=== PATIENT | female | born 1995 | race Caucasian/White ===

== ENCOUNTER 2019-12-13 01:27 | Inpatient (IN) | payer OTHER ==
[2019-12-13] MEDS ORDERED: SODIUM CHLORIDE 1,000 ML IV STA (02:21)
[2019-12-13] MEDS ORDERED: ACETAMINOPHEN 1000 MG/100 ML VIAL (NON FORMULARY) IVPB ONE ×2 (02:21→16:01)
--- NOTE | 2019-12-13 02:25 | PDOC ---
Attending Attestation - Resident Resident Name: Yuri Redmond - ED Attending Attestation I have performed the following: I have examined & evaluated the patient, The case was reviewed & discussed with the resident, I agree w/resident's findings & plan, Exceptions are as noted - HPI HPI: 12/13/19 07:17 See resident HPI - Physicial Exam PE: 12/13/19 07:17 Agree with documented exam - Medical Decision Making 12/13/19 07:17 24F with LLQ abdominal px a/w n/v, had similar episode in pst that she attributed to GERD consider colitis, AGE, nephrolithiasis, GERD, less likely torsion, eval for uti, pid f/u labs, ua symptomatic tx re-eval persistent px f/u ct ap Imaging shows proximal nephrolithiasis, hydro, stranding f/u ua admit
[2019-12-13] MEDS ORDERED: morphine CARPU-JECT 2 MG/1 ML DISP.SYRIN IVPUSH ONE (02:28)
--- NOTE | 2019-12-13 02:28 | PDOC ---
History of Present Illness - General Chief Complaint: Pain Stated Complaint: ABD PAIN Time Seen by Provider: 12/13/19 02:05 Past History - Past Medical History Allergies/Adverse Reactions: Allergies Allergy/AdvReac Type Severity Reaction Status Date / Time No Known Allergies Allergy Verified 12/13/19 01:33 Home Medications: Ambulatory Orders Ketorolac Tromethamine [Toradol] 10 mg PO Q6H PRN 3 Days #14 tablet 12/14/19 COPD: No - Psycho Social/Smoking Cessation Hx Smoking History: Never smoked *Physical Exam - Vital Signs Last Vital Signs Temp Pulse Resp BP Pulse Ox 97.9 F 76 18 124/60 99 12/13/19 01:30 12/13/19 01:30 12/13/19 01:30 12/13/19 01:30 12/13/19 01:30 12/13/19 02:22 24 y/o G1001 female PMH GERD c/o abdominal pain. This has happened before but usually epigastric and related to GERD. Pain is intense, causing her to writhe around, she is unable to sit down, located in [facility], started 14 hrs ago/at noon 12 Dec 2019, throbbing, non-radiating, and 10/10. She reports that she was eating ceviche, rice, and tostones with her family at home, which she made. No once else is experiencing these symptoms. She passed stool here in the ED and it was non-bloody and no mucus. She denies dysuria and hematuria. LMP was 2 years ago. She says that she used arm (?Nexplanon) implants in [facility]. She dc her implants a few months ago and has not had return of menses. Denies FNVD, chills, and constipation No new meds/herbs, drugs/supplements No recent illness, sick contacts She recent traveled to the [facility] from [facility] 4 months ago. Fam hx: Father DM Surgical hx: c/s (2009) Social hx: denies cigarette use, social etoh, denies drugs. No currently working. Lives in [facility]. Sexual hx: Currently sexually active with men only. No h/o STI. REVIEW OF SYSTEMS CONSTITUTIONAL: Absent: fever, chills, diaphoresis, generalized weakness, malaise, loss of appetite, weight change HEENT: Absent: rhinorrhea, nasal congestion, throat pain, throat swelling, difficulty swallowing, mouth swelling, ear pain, eye pain, visual changes CARDIOVASCULAR: Absent: chest pain, syncope, palpitations, irregular heart rate, lightheadedness, peripheral edema RESPIRATORY: Absent: cough, shortness of breath, dyspnea with exertion, orthopnea, wheezing, stridor, hemoptysis GASTROINTESTINAL: Absent: abdominal pain, abdominal distension, nausea, vomiting, diarrhea, con stipation, melena, hematochezia GENITOURINARY: Absent: dysuria, frequency, urgency, hesitancy, hematuria, flank pain, genital pain MUSCULOSKELETAL: Absent: myalgia, arthralgia, joint swelling, back pain, neck pain SKIN: Absent: rash, itching, pallor HEMATOLOGIC/IMMUNOLOGIC: Absent: easy bleeding, easy bruising, lymphadenopathy, frequent infections ENDOCRINE: Absent: unexplained weight gain, unexplained weight loss, heat intolerance, cold intolerance NEUROLOGIC: Absent: headache, focal weakness or paresthesias, dizziness, unsteady gait, seizure, mental status changes, bladder or bowel incontinence PSYCHIATRIC: Absent: anxiety, depression, suicidal or homicidal ideation, hallucinations. - GENERAL: AO x3 in acute distress HEAD: NCAT EYES: JOVANI, EOMI, sclera anicteric, conjunctiva clear. No ptosis. ENT: Ears normal, nares patent, oropharynx clear without exudates, moist mucous membranes. NECK: Trachea midline, full range of motion, supple. LUNGS: CTAB , no wheezes, no crackles, no accessory muscle use. HEART: RRR, S1, S2 without murmur, rub or gallop. - ABDOMEN: Soft, c/s scar, TTP LLQ, nondistended, normoactive bowel sounds, no guarding, no rebound, no hepatosplenomegaly, no masses. POS obturator sign. NEG King, Rovsing, Loren EXTREMITIES: 2+ pulses, warm, well-perfused, no edema. NEUROLOGICAL: Cranial nerves II through XII grossly intact. Strength 5/5 in UE and LE in both distal and proximal flexors. Brachial reflex 2+ BL. Patellar reflex 2+ BL. No dysdiadochokinesia. FTN NEG. Babinski NEG. Normal speech. Normal gait with appropriate strike phase, swing phase, and circumambulation KIN: Warm, dry, normal turgor, no rashes or lesions noted A/P # nephrolithiasis VS colitis VS diverticulitis VS ovarian torsion - CBC, CMP, UA, U cx, EKG - serum preg and if NEG CT a/p - NS 1 L - Ofirmev 1 g IVPB - Morphine 4 mg IVP 12/13/19 04:22 - serum preg neg - CT a/p with iv contrast ordered - Pain better controlled now - Pelvic exam: abdominal exam as above. Normal external morphology, shaved hair. No vaginal erythema or dc. No lesions. No CMT. 12/13/19 06:45 CT a/p POS for 3.2 mm x 7.4 mm obstructing proximal LEFT ureteral stone causing mild to moderate LEFT hydronephrosis/hydroureter, perinephric fluid stranding, and delayed excretion of contrast. Plan to admit Microblog sent ED Treatment Course - LABORATORY CBC & Chemistry Diagram: 12/14/19 13:05 12/14/19 05:50 Discharge - Discharge Information Problems reviewed: Yes Clinical Impression/Diagnosis: Nephrolithiasis Condition: Stable Disposition: HOME - Admission Yes - Follow up/Referral - Patient Discharge Instructions - Post Discharge Activity
[2019-12-13] MEDS ORDERED: morphine CARPU-JECT 4 MG/1 ML DISP.SYRIN IVPUSH ONE ×2 (02:32→05:13)
[2019-12-13] MEDS ORDERED: morphine SULFATE 4 MG/ML VIAL ONE ×2 (02:33→05:28)
[2019-12-13] MEDS ORDERED: ACETAMINOPHEN INJECTION 100 ML IVPB ONE (02:47)
[2019-12-13 03:08] LABS: BASO % 0.3 % (0-2.0); EOS % 0.5 % (0-4.5); HEMATOCRIT 39.9 % (32.4-45.2); HEMOGLOBIN 13.4 GM/dL (10.7-15.3); LYMPH % 16.6 % (8-40); MCH 31.3 pg (25.7-33.7); MCHC 33.6 g/dl (32.0-36.0); MEAN CELL VOLUME 93.2 fl (80-96); MEAN PLT VOLUME 8.4 fl (7.5-11.1); MONO % 6.9 % (3.8-10.2); NEUT % 75.7 % (42.8-82.8); PLATELET COUNT 308 K/MM3 (134-434); RBC 4.28 M/mm3 (3.60-5.2); RDW 12.9 % (11.6-15.6); WHITE BLOOD COUNT 14.8 K/mm3 (4.0-10.0)
--- NOTE | 2019-12-13 03:52 | PDOC ---
*Physical Exam - Vital Signs Last Vital Signs Temp Pulse Resp BP Pulse Ox 97.9 F 76 18 124/60 99 12/13/19 01:30 12/13/19 01:30 12/13/19 01:30 12/13/19 01:30 12/13/19 01:30 ED Treatment Course - LABORATORY CBC & Chemistry Diagram: 12/13/19 02:35 12/13/19 02:35 - ADDITIONAL ORDERS Additional order review: Laboratory Results 12/13/19 02:35 Serum , Qual Negative 12/13/19 02:35 RBC 4.28 MCV 93.2 MCHC 33.6 RDW 12.9 MPV 8.4 Neutrophils % 75.7 Lymphocytes % 16.6 Monocytes % 6.9 Eosinophils % 0.5 Basophils % 0.3 - Medications Given in the ED: ED Medications Discontinued Medications Generic Name Dose Route Start Last Admin Trade Name Freq PRN Reason Stop Dose Admin Acetaminophen 1,000 mg 12/13/19 02:21 12/13/19 03:00 Ofirmev Injection - IVPB 12/13/19 02:22 1,000 mg ONCE ONE Administration Sodium Chloride 1,000 mls @ 1,000 mls/hr 12/13/19 02:21 12/13/19 02:44 Normal Saline - IV 12/13/19 03:20 1,000 mls/hr ASDIR STA Administration Morphine Sulfate 2 mg 12/13/19 02:28 12/13/19 02:44 Morphine Injection - IVPUSH 12/13/19 02:29 Not Given ONCE ONE Morphine Sulfate 4 mg 12/13/19 02:32 12/13/19 02:44 Morphine Injection - IVPUSH 12/13/19 02:33 4 mg ONCE ONE Administration Medical Decision Making - Medical Decision Making 12/13/19 03:49 Patient seen as pre-attending with Dr. Redmond (PGY-1 IM [employer]) and Dr. Ledesma (Attending) 24 y/o female here with acute onset LLQ abdominal pain around 12 p.m. yesterday; h/o recent migration from [facility]. Recently removed Norplant implant w/o any return of her menstrual cycles. VS unremarkable Active NBNB emesis @ presentation; initial abdominal exam limited 2/2 to patient's pain S/p Morphine (4 mg) patient has LLQ TTP w/o peritoneal sign. No CVAT B/L Frontal Diagnosis: cystitis vs. pyelonephritis vs. nephrolithiasis vs. ovarian torsion vs. ectopic vs. hemmorhagic ovarian cyst vs. gastroenteritis. Less likely atypical appendicitis. 12/13/19 06:31 CTAP shows 3.2 x 7.4 obstructing L uteral stone w/L sided hydronephrosis, perinperhic fluid/stranding. Patient reassessed @ bedside, continues to c/o pain, will give Toradol. Amenable to admission. Hospitalist microblogged. Discharge - Discharge Information Problems reviewed: Yes Clinical Impression/Diagnosis: Nephrolithiasis Condition: Fair Disposition: HOME - Admission No - Follow up/Referral - Patient Discharge Instructions - Post Discharge Activity
[2019-12-13 03:54] LABS: ALBUMIN 3.8 g/dl (3.4-5.0); BILIRUBIN,TOTAL 0.4 mg/dL (0.2-1); BLOOD UREA NITROGEN 10.1 mg/dL (7-18); CALCIUM 8.7 mg/dL (8.5-10.1); CREATININE 0.7 mg/dL (0.55-1.3); POTASSIUM 4.5 mmol/L (3.5-5.1); TOT PROT 7.2 g/dl (6.4-8.2)
[2019-12-13] MEDS ORDERED: ONDANSETRON 4 MG/2 ML VIAL IVPUSH ONE (05:28)
[2019-12-13] MEDS ORDERED: ONDANSETRON 4 MG/2 ML VIAL ONE (05:29)
[2019-12-13] MEDS ORDERED: KETOROLAC TROMETHAMINE 30 MG/1 ML VIAL IVPUSH ONE (06:39)
[2019-12-13] MEDS ORDERED: KETOROLAC TROMETHAMINE 30 MG/1 ML VIAL ONE (06:44)
[2019-12-13] MEDS ORDERED: TAMSULOSIN HCL 0.4 MG CAP PO ONE (07:01)
[2019-12-13] MEDS ORDERED: KETOROLAC TROMETHAMINE 15 MG/ML VIAL IVPUSH PRN ×2 (07:39→16:23)
[2019-12-13] MEDS ORDERED: TAMSULOSIN HCL 0.4 MG CAP ONE (07:39)
[2019-12-13] MEDS ORDERED: ACETAMINOPHEN 1000 MG/100 ML VIAL (NON FORMULARY) IVPB PRN (07:42)
[2019-12-13] MEDS: LACTATED RINGERS SOLUTION 1,000 ML IV SCH ×2 (07:45→14:35)
--- NOTE | 2019-12-13 08:17 | HP ---
CHIEF COMPLAINT: LLQ/left flank pain PCP: HISTORY OF PRESENT ILLNESS: Patient is a 24 year old female with past medical history of GERD, presented to the ED due to constant severe 10/10 LLQ and left flank pain for 1 day. Patient reported pain started yesterday morning, occurred suddenly on the left flank are a radiating to the LLQ, severe 10/10, cramping with no aggravating or alleviating factors. This was accompanied by multiple episodes of NBNB vomiting. Because the pain was constant, patient came to the ED for further evaluation. Patient denies any fevers, chills, headache, dizziness, chest pain, SOB, diarrhea, hematuria or dysuria. ER course was notable for: (1)CTAP - 3.2mm x 7.4mm obstructing proximal left ureteral stone causing mild to moderate left hydronephrosis/hydroureter, perinephric fluid stranding, delayed excretion of contrast (2)WBC 14.8 (3) Recent Travel: denies PAST MEDICAL HISTORY: GERD PAST SURGICAL HISTORY: Social History: Smoking:denies Alcohol:denies Drugs: denies Family History: Sister - of T1DM Father - DM Allergies No Known Allergies Allergy (Verified 12/13/19 01:33) HOME MEDICATIONS: Home Medications Medication Instructions Recorded NK [No Known Home Medication] 12/13/19 REVIEW OF SYSTEMS CONSTITUTIONAL: Absent: fever, chills, diaphoresis, generalized weakness, malaise, loss of appetite, weight change HEENT: Absent: rhinorrhea, nasal congestion, throat pain, throat swelling, difficulty swallowing, mouth swelling, ear pain, eye pain, visual changes CARDIOVASCULAR: Absent: chest pain, syncope, palpitations, irregular heart rate, lightheadedness, peripheral edema RESPIRATORY: Absent: cough, shortness of breath, dyspnea with exertion, orthopnea, wheezing, stridor, hemoptysis GASTROINTESTINAL: vomiting, LLQ pain Absent: abdominal distension, nausea, diarrhea, constipation, melena, hemat ochezia GENITOURINARY: L flank pain Absent: dysuria, frequency, urgency, hesitancy, hematuria, genital pain MUSCULOSKELETAL: Absent: myalgia, arthralgia, joint swelling, back pain, neck pain SKIN: Absent: rash, itching, pallor HEMATOLOGIC/IMMUNOLOGIC: Absent: easy bleeding, easy bruising, lymphadenopathy, frequent infections ENDOCRINE: Absent: unexplained weight gain, unexplained weight loss, heat intolerance, cold intolerance NEUROLOGIC: Absent: headache, focal weakness or paresthesias, dizziness, unsteady gait, seizure, mental status changes, bladder or bowel incontinence PSYCHIATRIC: Absent: anxiety, depression, suicidal or homicidal ideation, hallucinations. PHYSICAL EXAMINATION Vital Signs - 24 hr 12/13/19 12/13/19 01:30 06:52 Temperature 97.9 F Pulse Rate 76 Pulse Rate [ 87 Apical] Respiratory 18 18 Rate Blood Pressure 124/60 Blood Pressure 115/75 [Left Arm] O2 Sat by Pulse 99 97 Oximetry (%) GENERAL: Awake, alert, and fully oriented, in no acute distress. HEAD: Normal with no signs of trauma. EYES: PERRLA, EOMI, sclera anicteric, conjunctiva clear. EARS, NOSE, THROAT: Moist mucous membranes. NECK: Normal range of motion, supple. LUNGS: Breath sounds equal, clear to auscultation bilaterally. HEART: Regular rate and rhythm, normal S1 and S2 without murmur, rub or gallop. ABDOMEN: Soft, +LLQ tenderness on deep palpation, not distended, normoactive bowel sounds. MUSCULOSKELETAL: Normal range of motion at all joints. +Left CVA tenderness LOWER EXTREMITIES: 2+ pulses, warm, well-perfused. No calf tenderness. No peripheral edema. NEUROLOGICAL: Cranial nerves II-XII intact. Normal speech. Normal gait. PSYCHIATRIC: Cooperative. Good eye contact. Appropriate mood and affect. SKIN: Warm, dry, normal turgor. Laboratory Results - last 24 hr 12/13/19 12/13/19 12/13/19 02:35 02:35 02:35 WBC 14.8 H RBC 4.28 Hgb 13.4 Hct 39.9 MCV 93.2 MCH 31.3 MCHC 33.6 RDW 12.9 Plt Count 308 MPV 8.4 Absolute Neuts (auto) 11.3 H Neutrophils % 75.7 Lymphocytes % 16.6 Monocytes % 6.9 Eosinophils % 0.5 Basophils % 0.3 Nucleated RBC % 0 Sodium 140 Potassium 4.5 Chloride 107 Carbon Dioxide 26 Anion Gap 7 L BUN 10.1 Creatinine 0.7 Est GFR (CKD-EPI)AfAm 139.57 Est GFR (CKD-EPI)NonAf 120.42 Random Glucose 113 H Calcium 8.7 Total Bilirubin 0.4 AST 22 ALT 32 Alkaline Phosphatase 101 Total Protein 7.2 Albumin 3.8 Serum , Qual Negative ASSESSMENT/PLAN: Patient is a 24 year old female with past medical history of GERD, presented to the ED due to constant severe 10/10 LLQ and left flank pain for 1 day. #Left ureteral stone with hydronephrosis -CTAP - 3.2mm x 7.4mm obstructing proximal left ureteral stone causing mild to moderate left hydronephrosis/hydroureter, perinephric fluid stranding, delayed excretion of contrast -UA pending, will start abx if positive for UTI -IVF -pain control with Toradol and Tylenol -Flomax 0.4mg -Urology (Dr. Oconnell) consulted. #FEN -IV LR @125cc/hr -Electrolytes wnl, routine bmp monitoring -NPO #Prophylaxis -SCDs, early ambulation #Disposition -full code -admit to med surg Visit type - Emergency Visit Emergency Visit: Yes ED Registration Date: 12/13/19 Care time: The patient presented to the Emergency Department on the above date and was hospitalized for further evaluation of their emergent condition. - New Patient This patient is new to me today: Yes Date on this admission: 12/13/19 - Critical Care Critical Care patient: No ATTENDING PHYSICIAN STATEMENT I saw and evaluated the patient. I reviewed the resident's note and discussed the case with the resident. I agree with the resident's findings and plan as documented. SUBJECTIVE: OBJECTIVE: ASSESSMENT AND PLAN:
[2019-12-13] MEDS ORDERED: PANTOPRAZOLE SODIUM 40 MG VIAL IVPUSH SCH (10:00)
[2019-12-13 10:04] LABS: URINE APPEARANCE CLEAR; URINE BILIRUBIN NEGATIVE (NEGATIVE); URINE COLOR YELLOW; URINE GLUCOSE (UA) NEGATIVE (NEGATIVE); URINE KETONE NEGATIVE (NEGATIVE)
[2019-12-13 10:05] LABS: EPI CELLS 2.3 /HPF (0-5/HPF); HYALINE CASTS 2.58 /lpf (0-8); URINE BACTERIA 25.6 /hpf (NEGATIVE); URINE LEUK ESTERASE NEGATIVE (NEGATIVE); URINE NITRITE NEGATIVE (NEGATIVE); URINE PROTEIN NEGATIVE (NEGATIVE); URINE RBC 8.9 /hpf (0-4); URINE UROBILINOGEN 0.2 mg/dL (0.2-1.0)
--- NOTE | 2019-12-13 11:07 | EKG ---
Test Reason : Blood Pressure : / mmHG Vent. Rate : 079 BPM Atrial Rate : 079 BPM P-R Int : 156 ms QRS Dur : 068 ms QT Int : 388 ms P-R-T Axes : 062 030 025 degrees QTc Int : 444 ms NORMAL SINUS RHYTHM NORMAL ECG NO PREVIOUS ECGS AVAILABLE Confirmed by BENJAMIN BROWNE MD ([id number]) on 12/13/2019 11:06:47 AM Referred By: Confirmed By:BENJAMIN BROWNE MD
[2019-12-13 11:23] VITALS: BMI 25.2
--- NOTE | 2019-12-13 13:13 | HP ---
Admitting History and Physical - Admission History of Present Illness: 24 year old female with past medical history of GERD, presented to the ED due to constant severe 10/10 LLQ and left flank pain starting 12 AM . She had associated nausea and vomiting. She has no hx of nephrolithiasis and had no associated urinary frequency, urgency, dysuria, hematuria. Denies fevers chills, dyspnea, rigors. Has no pertinent surgical history. Patient has been eating and drinking regularly no change in diet. Denies chest pain, palpitations, dyspnea on exertion or LE edema. PMH: GERD PSH: Meds: none Fam hx: noncontributory Social Hx: non smoker, no EtOH use, no drug use ROS: as above History Source: Patient Limitations to Obtaining History: No Limitations - Past Medical History ...: No - Smoking History Smoking history: Never smoked - Alcohol/Substance Use Hx Alcohol Use: No Home Medications - Allergies Allergies/Adverse Reactions: Allergies Allergy/AdvReac Type Severity Reaction Status Date / Time No Known Allergies Allergy Verified 12/13/19 01:33 - Home Medications Home Medications: Ambulatory Orders NK [No Known Home Medication] 12/13/19 Family Medical History Family History: Unremarkable Review of Systems - Review of Systems Constitutional: reports: No Symptoms Respiratory: reports: No Symptoms Gastrointestinal: reports: Nausea, Vomiting Physical Examination Vital Signs: Vital Signs Temperature 98.9 F 12/13/19 08:30 Pulse Rate 68 12/13/19 08:30 Respiratory Rate 20 12/13/19 08:30 Blood Pressure 120/80 12/13/19 08:30 O2 Sat by Pulse Oximetry (%) 98 12/13/19 08:30 Cardiovascular: Yes: WNL Respiratory: Yes: WNL Gastrointestinal: Yes: Tenderness (left flank) Labs: CBC, BMP 12/13/19 02:35 12/13/19 02:35 Assessment/Plan 24 year old female with past medical history of GERD, presented to the ED with constant severe 10/10 LLQ and left flank pain admitted with Left ureteral stone with hydronephrosis 1- Left ureteral stone with hydronephrosis -CTAP - 3.2mm x 7.4mm obstructing proximal left ureteral stone causing mild to moderate left hydronephrosis/hydroureter, perinephric fluid stranding, delayed excretion of contrast -UA pending, will start abx if positive for UTI -IVF LR @125cc/hr -pain control with Toradol and Tylenol -Flomax 0.4mg -Urology consulted 2- Supportive care DVT PX- per urology discuss if any surgical intervention if not- heparin subcutaneous GI PX- Protonix per home med NPO for now Visit type - Emergency Visit Emergency Visit: Yes ED Registration Date: 12/13/19 Care time: The patient presented to the Emergency Department on the above date and was hospitalized for further evaluation of their emergent condition. - New Patient This patient is new to me today: Yes Date on this admission: 12/13/19 - Critical Care Critical Care patient: No
[2019-12-13] MEDS ORDERED: PROPOFOL 20 ML ONE (14:54)
[2019-12-13] MEDS ORDERED: SUCCINYLCHOLINE CHLORIDE 200 MG/10 ML SYRINGE ONE (14:54)
[2019-12-13] MEDS ORDERED: MIDAZOLAM HCL 2 MG/2 ML SINGLE DOSE VIAL ONE (14:54)
[2019-12-13] MEDS ORDERED: LIDOCAINE HCL/PF 2% SDV 5ML VIAL ONE (15:02)
[2019-12-13] MEDS ORDERED: ceFAZolin SODIUM 1 GM VIAL ONE (15:02)
[2019-12-13] MEDS ORDERED: SODIUM CHLORIDE 0.9% P/F 10 ML VIAL IJ ONE (15:02)
[2019-12-13] MEDS ORDERED: DEXAMETHASONE SOD PHOSPHATE 4 MG/1 ML VIAL ONE (15:02)
[2019-12-13] MEDS ORDERED: ceFAZolin SODIUM 1 GM VIAL IVPB ONE (15:33)
[2019-12-13] MEDS ORDERED: DEXTROSE 5%-0.45% SALINE 1,000 ML IV SCH (16:15)
[2019-12-13] MEDS ORDERED: LACTATED RINGERS SOLUTION 1,000 ML IV SCH (16:23)
[2019-12-13] MEDS ORDERED: ONDANSETRON 4 MG/2 ML VIAL IVPUSH PRN (16:24)
--- NOTE | 2019-12-14 07:14 | OP ---
DATE OF OPERATION: 12/13/2019 PREOPERATIVE DIAGNOSIS: Left renal calculus, left hydronephrosis, left renal colic. POSTOPERATIVE DIAGNOSIS: Left renal calculus, left hydronephrosis, left renal colic. PROCEDURE: Cystoscopy, left ureteroscopic left lithotripsy, retrograde pyelogram on the left, and left ureteral stent placement. ESTIMATED BLOOD LOSS: None. SPECIMENS: None. DRAINS: A 24 x 6 double-J ureteral stent. FINDINGS: A large stone in the ureter. PREOPERATIVE INDICATIONS: Patient is a 24-year-old female who presents with 1 day of left-sided flank pain. CT scan reveals an 8 x 6-mm stone in the upper left ureter and no evidence of sepsis. She comes to the OR today. We obtained consent from the patient in both Citizen Of [place] and Sinhala. Risks, benefits, and alternatives were discussed including the risk of bleeding and infection, injury to the ureter, injury to adjacent organs, the possible need for nephrostomy tube. DESCRIPTION OF PROCEDURE: Patient was brought to the OR, placed on the table in the supine position. Given general anesthesia and IV antibiotics and placed in the modified lithotomy position. The groin was prepped and draped sterilely. Time-out was performed. Cystoscopy was performed. The bladder was unremarkable. Left UO was visualized, and a wire was passed up into the left kidney under fluoroscopic guidance. A 10-Lux[place]bourgish dual-lumen catheter was passed over the wire to dilate the ureter. Retrograde pyelogram was performed, which revealed left hydronephrosis. A ureteroscope was passed at the left ureter, and the stone was seen in the mid ureter. Using the Holmium laser fiber, the stone was broken up into small pieces, and these were all irrigated out of the ureter. The rest of the ureter was examined, and no further evidence of stones was seen. Another retrograde pyelogram was performed. It revealed no more stones. A 6 x 24 double J ureteral stent was left in place over the wire, 1 loop in the bladder, 1 loop in the kidney. Bladder was emptied. Patient was woken up. Ibrahima [id number]
[2019-12-14 07:58] LABS: ALBUMIN 3.1 g/dl (3.4-5.0); BILIRUBIN,TOTAL 0.4 mg/dL (0.2-1); BLOOD UREA NITROGEN 9.7 mg/dL (7-18); CALCIUM 8.6 mg/dL (8.5-10.1); CREATININE 0.7 mg/dL (0.55-1.3); POTASSIUM 4.3 mmol/L (3.5-5.1)
[2019-12-14 08:07] LABS: BASO % 0.1 % (0-2.0); HEMATOCRIT 37.5 % (32.4-45.2); HEMOGLOBIN 12.8 GM/dL (10.7-15.3); LYMPH % 10.4 % (8-40); MCH 32.1 pg (25.7-33.7); MCHC 34.2 g/dl (32.0-36.0); MEAN CELL VOLUME 93.7 fl (80-96); MEAN PLT VOLUME 8.3 fl (7.5-11.1); MONO % 6.5 % (3.8-10.2); PLATELET COUNT 284 K/MM3 (134-434); RBC 4.01 M/mm3 (3.60-5.2); RDW 12.7 % (11.6-15.6)
[2019-12-14] MEDS ORDERED: TAMSULOSIN HCL 0.4 MG CAP PO SCH ×2 (08:30)
[2019-12-14] MEDS: IBUPROFEN 800 MG/8 ML IJ IVPB SCH ×2 (09:11→09:18)
[2019-12-14] MEDS ORDERED: PANTOPRAZOLE SODIUM 40 MG VIAL IVPUSH SCH (10:00)
[2019-12-14 10:32] VITALS: BP 107/66; PULSE 87; TEMP 98.2
--- NOTE | 2019-12-14 11:06 | PN ---
Progress Note (short form) - Note Progress Note: Anesthesia post op POD#1 S/P Cystoscopy and laser lithotripsy under GA. VSS. No apparent post anesthesia complications.
--- NOTE | 2019-12-14 12:50 | DS ---
Physical Examination Vital Signs: Vital Signs Temperature 98.2 F 12/14/19 10:00 Pulse Rate 87 12/14/19 10:00 Respiratory Rate 20 12/14/19 10:00 Blood Pressure 107/66 12/14/19 10:00 O2 Sat by Pulse Oximetry (%) 99 12/14/19 09:00 Constitutional: Yes: Well Nourished Cardiovascular: Yes: WNL Respiratory: Yes: WNL Labs: CBC, BMP 12/14/19 05:50 12/14/19 05:50 Discharge Summary Problems reviewed: Yes Reason For Visit: CALCULUS OF KIDNEY Current Active Problems Nephrolithiasis (Acute) Hospital Course: 24 year old Femal presented with Left sided flank pain and CT [id number] 6 mm stone in the upper left ureter and had no evidence of sepsis with U/A also showed no signs of infection. Urology was consulted and patient went for cystoscopy, left ureteroscopic left lithotripsy retrograde pyelogram on the left and left ureteral stent placement. Operative note - no signs of infection or purulent drainage during procedure. Patient had uncomplicated course and was instructed to return to ED if any issues, pain bleeding fevers, chills. Patient Urine culture showed no growth and patient had some leukocytosis with no left shift immediately post-op likely inflammatory as she remained asymptomatic without any fevers or sign/symptoms of infection. Patient wants to go home- will follow up PMD or return to ED if above. Condition: Fair - Instructions - Home Medications Comprehensive Discharge Medication List: Ambulatory Orders NK [No Known Home Medication] 12/13/19 This patient is new to me today: Yes Date on this admission: 12/14/19 Emergency Visit: No Critical Care patient: No - Discharge Referral Referred to [facility] Med [facility] No
[2019-12-14 14:13] LABS: BASO % 0.3 % (0-2.0); EOS % 0.1 % (0-4.5); HEMATOCRIT 38.1 % (32.4-45.2); HEMOGLOBIN 12.7 GM/dL (10.7-15.3); LYMPH % 16.4 % (8-40); MCH 31.6 pg (25.7-33.7); MCHC 33.4 g/dl (32.0-36.0); MEAN CELL VOLUME 94.6 fl (80-96); MEAN PLT VOLUME 8.6 fl (7.5-11.1); MONO % 8.1 % (3.8-10.2); NEUT % 75.1 % (42.8-82.8); PLATELET COUNT 279 K/MM3 (134-434); RBC 4.03 M/mm3 (3.60-5.2)
== END 2019-12-14 15:34 | disposition home or self-care (01) | DRG 446 ==
LOC: JER 01:27 → JERBED 07:01 → J8W 09:26
PROVIDERS: ADMIT Internal Medicine; ATTEND Internal Medicine
PROC: 0TC78ZZ Extirpation of Matter from Left Ureter, Via Natural or Artificial Opening Endoscopic (ICD-10-PCS; principal; 2019-12-13 13:00)
PROC: 0T778DZ Dilation of Left Ureter with Intraluminal Device, Via Natural or Artificial Opening Endoscopic (ICD-10-PCS; 2019-12-13 13:00)
PROC: BT1FYZZ Fluoroscopy of Left Kidney, Ureter and Bladder using Other Contrast (ICD-10-PCS; 2019-12-13 13:00)
DX: N13.2 Hydronephrosis with renal and ureteral calculous obstruction (principal); K21.9 Gastro-esophageal reflux disease without esophagitis; D72.829 Elevated white blood cell count, unspecified
CPT/HCPCS: 36415; 74177-TC; 76000-TC-FY; 80053; 81003; 83735; 84703; 85025; 87086; 93005; 93010; 94760; 99285-25; J0131; J7030